=== PATIENT | female | born 1990 | race Caucasian/White ===

== ENCOUNTER 2016-04-08 23:27 | Emergency (ER) | payer OTHER ==
--- NOTE | 2016-04-09 01:10 | ED ORDER SUMMARY ---
..... Patient: LUIGI MITCHELL OrderSheet [facility] VisitID: [id number] [address] [place] [address] 25y, F Registration Date/Time: 04/08/2016 ORDER SHEET Weight: 47.6 kg (stated) Allergies: NKA GENERAL ORDERS: Culture, Throat Urgent (23:59 04/08/2016 AMcQuoid ER Tech1 verbal order read back to Mau BEDOLLA) (Cancelled: Wrong Order0:00 AMcQuoid ER Tech1) Culture, Strep Screen Urgent (00:00 04/09/2016 AMcQuoid ER Tech1 verbal order read back to Mau BEDOLLA) (0:01 AMcQuoid ER Tech1) Soft Tissue Neck Urgent (00:50 04/09/2016 Mau BEDOLLA) (Ack 0:51 AMcQuoid ER Tech1) (0:57 RFay) MEDICATION ORDERS: Augmentin PO 875 mg (NOW) (00:50 04/09/2016 Mau BEDOLLA) (Ack 1:20 HSoule) (1:29 HSoule) Hydrocodone-APAP Liquid PO 10 mL (NOW) (01:08 04/09/2016 Mau BEDOLLA) (Ack 1:20 HSoule) (1:29 HSoule) IV FLUIDS: ORDER SHEET NOTES: [Electronically signed by Wilton Dixon MD (08:49 04/09/2016)] [Electronically signed by Tatiana Mondragon R.N. (16:58 04/11/2016)] [Electronically locked/signed by Tatiana Mondragon R.N. (16:58 04/11/2016)]
--- NOTE | 2016-04-09 01:10 | ED ORDER SUMMARY ---
..... Patient: LUIGI MITCHELL OrderSheet [facility] VisitID: [id number] [address] [place] [address] 25y, F Registration Date/Time: 04/08/2016 ORDER SHEET Weight: 47.6 kg (stated) Allergies: NKA GENERAL ORDERS: Culture, Throat Urgent (23:59 04/08/2016 AMcQuoid ER Tech1 verbal order read back to Mau BEDOLLA) (Cancelled: Wrong Order0:00 AMcQuoid ER Tech1) Culture, Strep Screen Urgent (00:00 04/09/2016 AMcQuoid ER Tech1 verbal order read back to Mau BEDOLLA) (0:01 AMcQuoid ER Tech1) Soft Tissue Neck Urgent (00:50 04/09/2016 Mau BEDOLLA) (Ack 0:51 AMcQuoid ER Tech1) (0:57 RFay) MEDICATION ORDERS: Augmentin PO 875 mg (NOW) (00:50 04/09/2016 Mau BEDOLLA) (Ack 1:20 HSoule) (1:29 HSoule) Hydrocodone-APAP Liquid PO 10 mL (NOW) (01:08 04/09/2016 Mau BEDOLLA) (Ack 1:20 HSoule) (1:29 HSoule) IV FLUIDS: ORDER SHEET NOTES: [Electronically signed by Wilton Dixon MD (08:49 04/09/2016)] [Electronically signed by Tatiana Mondragon R.N. (16:58 04/11/2016)] [Electronically locked/signed by Tatiana Mondragon R.N. (16:58 04/11/2016)]
--- NOTE | 2016-04-09 01:10 | ED CLINICAL REPORT ---
Clinical Report - Physicians/Mid Levels [facility] [address] [place] [address] 04/08/2016 23:28 Patient: LUIGI MITCHELL Time Seen: 00:04 Apr 09 2016. Arrived- By private vehicle. Historian- patient. CPT: ER phys charges level 3 (#238540). HISTORY OF PRESENT ILLNESS Chief Complaint: SORE THROAT. This started yesterday and is still present. Pain described as moderate. The patient has had a sore throat. No mouth sores, nasal discharge or swollen jaw or face. Similar symptoms previously: None. Recent medical care: Not recently seen/assessed. REVIEW OF SYSTEMS No fever, cough, difficulty breathing, chest pain or nausea. No diarrhea, abdominal pain, fainting episodes, joint pain or skin rash. No enlarged lymph nodes. Denies current . All systems otherwise negative, except as recorded above. PAST HISTORY See nurses notes. Medications: None. Allergies: NKA. SOCIAL HISTORY Light tobacco smoker (cigarette)- less than 1/2 a pack per day. Alcohol use. History of drug use: marijuana. ADDITIONAL NOTES The nursing notes have been reviewed. PHYSICAL EXAM Vital Signs: 04/08/2016 23:33 BP: 120/82. HR: 105. RR: 16. O2 saturation: 100%. Temp: 98.8 F. Pain level now: 7/10. Appearance: Alert. Patient in mild distress. Head: Normal external inspection. Eyes: Pupils equal, round and reactive to light. Conjunctivae and eyelids normal. ENT: Ears normal. Nose normal. Mild pharyngeal erythema. No pharyngeal vesicles or ulcerations. No right tonsillar exudate, right tonsillar swelling, left tonsillar exudate or left tonsillar swelling. Lips normal. Gums normal. No trismus present. Uvula midline. Neck: No adenopathy. CVS: Normal heart rate and rhythm. Heart sounds normal. Pulses normal. Respiratory: No respiratory distress. Breath sounds normal. Chest nontender. Abdomen: Soft and nontender. Skin: Normal skin color. No rash. Extremities: Extremities nontender. Neuro: Oriented X 3. No motor deficit. No sensory deficit. LABS, X-RAYS, AND EKG Soft Tissue Neck X-rays: No acute findings. Normal pre-vertebral space, epiglottis and sub-glottic space. Normal alignment. No foreign body. (No apparent edema to the soft tissues of the neck.). Views: lateral and jayla-posterior. Technique: good. The X-rays were independently viewed by me and interpreted contemporaneously by me. Laboratory Tests: Culture, Strep Screen: (DIANNA: 04/09/2016 00:00) ( MsgRcvd 04/09/2016 00:22) Final results Test Result Flag Units (Reference) RAPID STREP SCREEN - THROAT DATE: 04/09/16 NEGATIVE SCREEN: RAPID STREP SCREEN NEGATIVE; CONFIRMATION TO FOLLOW . PROGRESS AND PROCEDURES Course of Care: Augmentin 875 mg po Lortab 10 ml po Patient is stable. Patient/family counseled. Disposition: Discharged. Condition: stable. CLINICAL IMPRESSION Acute pharyngitis. No streptococcal pharyngitis or gonococcal pharyngitis. INSTRUCTIONS No strenuous activity. Do not work for three days until better. Drink plenty of fluids. Warnings: Further evaluation is necessary. GENERAL WARNINGS: Return or contact your physician immediately if your condition worsens or changes unexpectedly, if not improving as expected, or if other problems arise. Prescription Medications: Augmentin 875 mg: take 1 tablet orally every 12 hours for 7 days. Dispense fourteen (14). No refills. Substitution is permissible. Hydrocodone / APAP Liquid 7.5mg/325mg/15 mL: take ten (10) mL orally every 4 hours as needed for pain. Dispense two hundred (200) mL. No refill. Follow-up: Follow up with your doctor in two days. Call for the next available appointment. Understanding of the discharge instructions verbalized by patient and parent. (Electronically signed by Wilton Dixon MD 04/09/2016 8:49)
--- NOTE | 2016-04-09 01:10 | ED CLINICAL REPORT ---
Clinical Report - Physicians/Mid Levels [facility] [address] [place] [address] 04/08/2016 23:28 Patient: LUIGI MITCHELL Time Seen: 00:04 Apr 09 2016. Arrived- By private vehicle. Historian- patient. CPT: ER phys charges level 3 (#[id number]). HISTORY OF PRESENT ILLNESS Chief Complaint: SORE THROAT. This started yesterday and is still present. Pain described as moderate. The patient has had a sore throat. No mouth sores, nasal discharge or swollen jaw or face. Similar symptoms previously: None. Recent medical care: Not recently seen/assessed. REVIEW OF SYSTEMS No fever, cough, difficulty breathing, chest pain or nausea. No diarrhea, abdominal pain, fainting episodes, joint pain or skin rash. No enlarged lymph nodes. Denies current . All systems otherwise negative, except as recorded above. PAST HISTORY See nurses notes. Medications: None. Allergies: NKA. SOCIAL HISTORY Light tobacco smoker (cigarette)- less than 1/2 a pack per day. Alcohol use. History of drug use: marijuana. ADDITIONAL NOTES The nursing notes have been reviewed. PHYSICAL EXAM Vital Signs: 04/08/2016 23:33 BP: 120/82. HR: 105. RR: 16. O2 saturation: 100%. Temp: 98.8 F. Pain level now: 7/10. Appearance: Alert. Patient in mild distress. Head: Normal external inspection. Eyes: Pupils equal, round and reactive to light. Conjunctivae and eyelids normal. ENT: Ears normal. Nose normal. Mild pharyngeal erythema. No pharyngeal vesicles or ulcerations. No right tonsillar exudate, right tonsillar swelling, left tonsillar exudate or left tonsillar swelling. Lips normal. Gums normal. No trismus present. Uvula midline. Neck: No adenopathy. CVS: Normal heart rate and rhythm. Heart sounds normal. Pulses normal. Respiratory: No respiratory distress. Breath sounds normal. Chest nontender. Abdomen: Soft and nontender. Skin: Normal skin color. No rash. Extremities: Extremities nontender. Neuro: Oriented X 3. No motor deficit. No sensory deficit. LABS, X-RAYS, AND EKG Soft Tissue Neck X-rays: No acute findings. Normal pre-vertebral space, epiglottis and sub-glottic space. Normal alignment. No foreign body. (No apparent edema to the soft tissues of the neck.). Views: lateral and jayla-posterior. Technique: good. The X-rays were independently viewed by me and interpreted contemporaneously by me. Laboratory Tests: Culture, Strep Screen: (DIANNA: 04/09/2016 00:00) ( MsgRcvd 04/09/2016 00:22) Final results Test Result Flag Units (Reference) RAPID STREP SCREEN - THROAT DATE: 04/09/16 NEGATIVE SCREEN: RAPID STREP SCREEN NEGATIVE; CONFIRMATION TO FOLLOW . PROGRESS AND PROCEDURES Course of Care: Augmentin 875 mg po Lortab 10 ml po Patient is stable. Patient/family counseled. Disposition: Discharged. Condition: stable. CLINICAL IMPRESSION Acute pharyngitis. No streptococcal pharyngitis or gonococcal pharyngitis. INSTRUCTIONS No strenuous activity. Do not work for three days until better. Drink plenty of fluids. Warnings: Further evaluation is necessary. GENERAL WARNINGS: Return or contact your physician immediately if your condition worsens or changes unexpectedly, if not improving as expected, or if other problems arise. Prescription Medications: Augmentin 875 mg: take 1 tablet orally every 12 hours for 7 days. Dispense fourteen (14). No refills. Substitution is permissible. Hydrocodone / APAP Liquid 7.5mg/325mg/15 mL: take ten (10) mL orally every 4 hours as needed for pain. Dispense two hundred (200) mL. No refill. Follow-up: Follow up with your doctor in two days. Call for the next available appointment. Understanding of the discharge instructions verbalized by patient and parent. (Electronically signed by Wilton Dixon MD 04/09/2016 8:49)
--- NOTE | 2016-04-09 01:10 | ED NURSING NOTES ---
Clinical Report - Nurses [facility] [address] [place] [address] 04/08/2016 23:28 Patient: LUIGI MITCHELL TRIAGE Triage time 2334. Acuity: LEVEL 4. Chief Complaint: COUGH and SORE THROAT. Alert. No acute distress. SEPSIS SCREEN: Sepsis Screen. Negative (no infection suspected/documented). --23:41 Tatiana Mondragon R.N. 23:33 04/08/16. BP: 120/82. HR: 105. RR: 16. O2 saturation: 100%. Temp: 98.8 F. Pain level now: 09/03. --23:41 Tatiana Mondragon R.N. Weight: 47.6 kg stated. Height/Length: 62 inches Per Patient. BMI: 19.2. --23:33 Tatiana Mondragon R.N. Medications None. --23:38 Tatiana Mondragon R.N. Allergies NKA. --23:38 Tatiana Mondragon R.N. Medication/allergy information source: the patient. --23:41 Tatiana Mondragon R.N. History Arrived by private vehicle. Historian: patient. ( Pt states started feeling with a sore throat since yesterday went to [facility] in clinic and was told to rinse with salt water and "did not have strep throat" Pt states feeling worst, dizzy, hurts when she breathes and very sore throat). This started yesterday. She has had chest congestion, fatigue and a headache. No abdominal pain, vomiting or diarrhea. No recent travel. Treatment SIGN BOARD ERECTOR: None. PAST MEDICAL HX: Immunizations: up-to-date. SOCIAL HX: Light tobacco smoker- less than 1/2 a pack per day. Occasional alcohol use. (1 years). History of occasional drug use: marijuana. (5 months). No recent travel. SELF HARM ASSESSMENT: A self harm assessment was performed. The patient answered "no" to the question "Do you have thoughts of harming or killing yourself?" and "Have you recently had thoughts about harming or killing others?". FALL RISK ASSESSMENT: Fall risk assessment completed. No fall risk identified. NUTRITIONAL RISK ASSESSMENT: The nutritional risk assessment revealed no deficiencies. FUNCTIONAL ASSESSMENT: Functional assessment: no impairments noted. LEARNING NEEDS ASSESSMENT: The learning needs assessment revealed no barriers. SKIN INTEGRITY ASSESSMENT: Skin integrity risk assessment completed. No skin integrity risk identified. --23:41 Tatiana Mondragon R.N. PROBLEMS: Fractured Metatarsal. ADHD - Attention Deficit Hyperactivity Disorder. Anxiety Reaction. Tetanus Status. Immunizations. Bronchitis. Pneumonia. LNMP - Last Normal Menstrual Period. --23:38 Tatiana Mondragon R.N. ADDITIONAL SURGERIES: Adenoidectomy. Dilatation & Curettage. Tonsillectomy. --23:38 Tatiana Mondragon R.N. Interventions ID band on patient. --23:41 Tatiana Mondragon R.N. PHYSICAL ASSESSMENT Ambulatory to room. GENERAL / NEURO / PSYCH: Alert. Oriented X 4. Appears in no acute distress. HEENT: Pupils equal, round and reactive to light. Mucous membranes are pink. RESPIRATORY: Cough. Decreased breath sounds in the bases bilaterally. Breath sounds within normal limits. No wheezes. CVS: Capillary refill less than 2 seconds. SKIN: Skin intact. Skin is warm and dry. Normal skin turgor. --23:42 Tatiana Mondragon R.N. NURSING PROGRESS NOTES The initial plan of care for this patient has been created This plan of care was discussed with the patient. Patient gowned. Reassurance given. Two patient identifiers checked. Call light placed in reach. Side rails up x 1. Bed placed in lowest position. Brakes of bed on. --23:43 Tatiana Mondragon R.N. 23:50. Checked patient name and birthdate: patient confirmed. Throat swab obtained for rapid strep. --00:02 Sheeba Quiroz ER Tech1 :04/09/2016 Augmentin (Amoxicillin-Pot Clavulanate) PO Tablets 875 mg given. Allergies verified and confirmed 5 rights. --: Radha Velazquez 01:29 04/09/2016 Hydrocodone-APAP Liquid (Hydrocodone-Acetaminophen) PO Solution/Elixir 10 mL given. Allergies verified, confirmed 5 rights and sedative warning given to the patient and patient's family. --01:29 Radha Velazquez. DISPOSITION / DISCHARGE Condition at departure: stable. No learning barriers present. Discharge instructions provided and reviewed with the patient and family. Activity restrictions reviewed (no work for 3 days). Work note given. Patient and family verbalized understanding. Written instructions provided in Portuguese. ( Taught pt not to drive while taking Hydrodocone and to not take extra Acetominophin. Also taught pt to drink plenty of fluids. Pt denied having any questions.). The patient was discharged home and accompanied by parent. She left the Emergency Department ambulatory and via private vehicle. Parent driving. FALL RISK ASSESSMENT: Fall risk assessment completed. No fall risk identified. --01:36 Radha Velazquez 01:32 04/09/16. BP: 106/76. HR: 78. RR: 16. O2 saturation: 98%. Temp: 99.5 F (oral). Pain level now: 09/03. --01:36 Radha Velazquez. Locked/Released at 04/11/2016 16:58 by Tatiana Mondragon, RHiltonNHilton
--- NOTE | 2016-04-09 05:54 | DIAGNOSTIC IMAGING REPORT ---
PROCEDURE: XR SOFT TISSUE NECK INDICATION: DIFFICULTY SWALLOWING TECHNIQUE: AP and lateral views. COMPARISON: None. FINDINGS: Normal epiglottis. There is no prevertebral soft tissue swelling. No radiopaque foreign bodies. There is straightening of the cervical spine. Normal disc spaces and alignment without fracture. IMPRESSION: 1. Normal study
--- NOTE | 2016-04-11 16:58 | ED DISCHARGE INSTRUCTIONS ---
Patient: LUIGI MITCHELL General Instructions [facility] VisitID: [id number] [address] [place] [address] 25y, F Registration Date/Time: 04/08/2016 Acute pharyngitis. No streptococcal pharyngitis or gonococcal pharyngitis. INSTRUCTIONS No strenuous activity. Do not work for three days until better. Drink plenty of fluids. Warnings: Further evaluation is necessary. GENERAL WARNINGS: Return or contact your physician immediately if your condition worsens or changes unexpectedly, if not improving as expected, or if other problems arise. Prescription Medications: Augmentin 875 mg: take 1 tablet orally every 12 hours for 7 days. Dispense fourteen (14). No refills. Substitution is permissible. Hydrocodone / APAP Liquid 7.5mg/325mg/15 mL: take ten (10) mL orally every 4 hours as needed for pain. Dispense two hundred (200) mL. No refill. Follow-up: Follow up with your doctor in two days. Call for the next available appointment. Understanding of the discharge instructions verbalized by patient and parent. ADDITIONAL INFORMATION Hydrocodone Bitartrate, Acetaminophen Oral solution What is this medicine? ACETAMINOPHEN; HYDROCODONE (a set a LILIANA kevin fen; seamus droe KOE done) is a pain reliever. It is used to treat mild to moderate pain. How should I use this medicine? Take this medicine by mouth. Use a specially marked spoon or dropper to measure your dose. Ask your pharmacist if you do not have a dropper or measuring spoon. Do not use a household spoon. Follow the directions on the prescription label. If the medicine upsets your stomach, take it with food or milk. Do not take more medicine than you are told to take. Talk to your talent acquisition associate regarding the use of this medicine in children. This medicine is not approved for use in children. What side effects may I notice from receiving this medicine? Side effects that you should report to your doctor or health animal care assistant as soon as possible: allergic reactions like skin rash, itching or hives, swelling of the face, lips, or tongue breathing problems confusion feeling faint or lightheaded, falls stomach pain yellowing of the eyes or skin Side effects that usually do not require medical attention (report to your doctor or health animal care assistant if they continue or are bothersome): nausea, vomiting stomach upset What may interact with this medicine? alcohol antihistamines isoniazid medicines for depression, anxiety, or psychotic disturbances medicines for sleep muscle relaxants naltrexone narcotic medicines (opiates) for pain phenobarbital ritonavir tramadol What if I miss a dose? If you miss a dose, take it as soon as you can. If it is almost time for your next dose, take only that dose. Do not take double or extra doses. Where should I keep my medicine? Keep out of the reach of children. This medicine can be abused. Keep your medicine in a safe place to protect it from theft. Do not share this medicine with anyone. Selling or giving away this medicine is dangerous and against the law. Store at room temperature between 20 and 25 degrees C (68 and 77 degrees F). Protect from light. Keep container tightly closed. Throw away any unused medicine after the expiration date. Discard unused medicine and used packaging carefully. Pets and children can be harmed if they find used or lost packages. What should I tell my health care provider before I take this medicine? They need to know if you have any of these conditions: brain tumor Crohn's disease, inflammatory bowel disease, or ulcerative colitis drink more than 3 alcohol-containing drinks per day drug abuse or addiction head injury heart or circulation problems kidney disease or problems going to the bathroom liver disease lung disease, asthma, or breathing problems an unusual or allergic reaction to acetaminophen, hydrocodone, other opioid analgesics, other medicines, foods, dyes, or preservatives or trying to get breast-feeding What should I watch for while using this medicine? Tell your doctor or health animal care assistant if your pain does not go away, if it gets worse, or if you have new or a different type of pain. You may develop tolerance to the medicine. Tolerance means that you will need a higher dose of the medicine for pain relief. Tolerance is normal and is expected if you take this medicine for a long time. Do not suddenly stop taking your medicine because you may develop a severe reaction. Your body becomes used to the medicine. This does NOT mean you are addicted. Addiction is a behavior related to getting and using a drug for a non-medical reason. If you have pain, you have a medical reason to take pain medicine. Your doctor will tell you how much medicine to take. If your doctor wants you to stop the medicine, the dose will be slowly lowered over time to avoid any side effects. You may get drowsy or dizzy when you first start taking the medicine or change doses. Do not drive, use machinery, or do anything that may be dangerous until you know how the medicine affects you. Stand or sit up slowly. There are different types of narcotic medicines (opiates) for pain. If you take more than one type at the same time, you may have more side effects. Give your health care provider a list of all medicines you use. Your doctor will tell you how much medicine to take. Do not take more medicine than directed. Call emergency for help if you have problems breathing. The medicine will cause constipation. Try to have a bowel movement at least every 2 to 3 days. If you do not have a bowel movement for 3 days, call your doctor or health animal care assistant. Too much acetaminophen can be very dangerous. Do not take Tylenol (acetaminophen) or medicines that contain acetaminophen with this medicine. Many non-prescription medicines contain acetaminophen. Always read the labels carefully. You have been given the following additional information: Hydrocodone Bitartrate, Acetaminophen Oral solution No strenuous activity. Do not work for three days until better. (Electronically signed by Wilton Dixon MD 04/09/2016 8:49)
--- NOTE | 2016-04-11 16:58 | ED MED RECONCILIATION SUMMARY ---
Patient: LUIGI MITCHELL Medication Reconciliation Report [facility] VisitID: [id number] [address] [place] [address] 25y, F Registration Date/Time: 04/08/2016 Weight: 47.6 kg Height/Length: 62 in. BMI: 19.2 ALLERGIES: NKA The patient's Home Medications are listed below: NONE. The source(s) of the original Home Medication information: patient The following Medications were given to the patient in the Emergency Department: Augmentin [PO] PO 875 mg, administered: 04/09/2016 1:29:00 AM Hydrocodone-APAP Liquid [PO] PO 10 mL, administered: 04/09/2016 1:29:00 AM The following Medications were prescribed to the patient: Augmentin 875 mg: take 1 tablet orally every 12 hours for 7 days. Dispense fourteen (14). No refills. Substitution is permissible. -- Wilton Dixon MD Hydrocodone / APAP Liquid 7.5mg/325mg/15 mL: take ten (10) mL orally every 4 hours as needed for pain. Dispense two hundred (200) mL. No refill. -- Wilton Dixon MD
--- NOTE | 2016-04-11 16:58 | ED MAR SUMMARY ---
..... Medication Administration Record [facility] [address] [place] [address] Patient: LUIGI MITCHELL Visit ID: [id number] 25y, F Weight: 47.6 kg Height/Length: 62 in BMI: 19.2 ALLERGIES: NKA Given 04/09/2016 Radha Velazquez, Medication Administered: AUGMENTIN [PO] (AMOXICILLIN-POT CLAVULANATE), Dose: 875 mg Tablets PO. Medication Ordered: Augmentin PO 875 mg (NOW). Given 04/09/2016 Radha Velazquez, Medication Administered: HYDROCODONE-APAP LIQUID [PO] (HYDROCODONE-ACETAMINOPHEN), Dose: 10 mL Solution/Elixir PO. Medication Ordered: Hydrocodone-APAP Liquid PO 10 mL (NOW).
--- NOTE | 2016-04-11 16:58 | ED MAR SUMMARY ---
..... Medication Administration Record [facility] [address] [place] [address] Patient: LUIGI MITCHELL Visit ID: [id number] 25y, F Weight: 47.6 kg Height/Length: 62 in BMI: 19.2 ALLERGIES: NKA Given 04/09/2016 Radha Velazquez, Medication Administered: AUGMENTIN [PO] (AMOXICILLIN-POT CLAVULANATE), Dose: 875 mg Tablets PO. Medication Ordered: Augmentin PO 875 mg (NOW). Given 04/09/2016 Radha Velazquez, Medication Administered: HYDROCODONE-APAP LIQUID [PO] (HYDROCODONE-ACETAMINOPHEN), Dose: 10 mL Solution/Elixir PO. Medication Ordered: Hydrocodone-APAP Liquid PO 10 mL (NOW).
--- NOTE | 2016-04-11 16:58 | ED MED RECONCILIATION SUMMARY ---
Patient: LUIGI MITCHELL Medication Reconciliation Report [facility] VisitID: [id number] [address] [place] [address] 25y, F Registration Date/Time: 04/08/2016 Weight: 47.6 kg Height/Length: 62 in. BMI: 19.2 ALLERGIES: NKA The patient's Home Medications are listed below: NONE. The source(s) of the original Home Medication information: patient The following Medications were given to the patient in the Emergency Department: Augmentin [PO] PO 875 mg, administered: 04/09/2016 1:29:00 AM Hydrocodone-APAP Liquid [PO] PO 10 mL, administered: 04/09/2016 1:29:00 AM The following Medications were prescribed to the patient: Augmentin 875 mg: take 1 tablet orally every 12 hours for 7 days. Dispense fourteen (14). No refills. Substitution is permissible. -- Wilton Dixon MD Hydrocodone / APAP Liquid 7.5mg/325mg/15 mL: take ten (10) mL orally every 4 hours as needed for pain. Dispense two hundred (200) mL. No refill. -- Wilton Dixon MD
--- NOTE | 2016-04-11 16:58 | ED DISCHARGE INSTRUCTIONS ---
Patient: LUIGI MITCHELL General Instructions [facility] VisitID: [id number] [address] [place] [address] 25y, F Registration Date/Time: 04/08/2016 Acute pharyngitis. No streptococcal pharyngitis or gonococcal pharyngitis. INSTRUCTIONS No strenuous activity. Do not work for three days until better. Drink plenty of fluids. Warnings: Further evaluation is necessary. GENERAL WARNINGS: Return or contact your physician immediately if your condition worsens or changes unexpectedly, if not improving as expected, or if other problems arise. Prescription Medications: Augmentin 875 mg: take 1 tablet orally every 12 hours for 7 days. Dispense fourteen (14). No refills. Substitution is permissible. Hydrocodone / APAP Liquid 7.5mg/325mg/15 mL: take ten (10) mL orally every 4 hours as needed for pain. Dispense two hundred (200) mL. No refill. Follow-up: Follow up with your doctor in two days. Call for the next available appointment. Understanding of the discharge instructions verbalized by patient and parent. ADDITIONAL INFORMATION Hydrocodone Bitartrate, Acetaminophen Oral solution What is this medicine? ACETAMINOPHEN; HYDROCODONE (a set a LILIANA kevin fen; seamus droe KOE done) is a pain reliever. It is used to treat mild to moderate pain. How should I use this medicine? Take this medicine by mouth. Use a specially marked spoon or dropper to measure your dose. Ask your pharmacist if you do not have a dropper or measuring spoon. Do not use a household spoon. Follow the directions on the prescription label. If the medicine upsets your stomach, take it with food or milk. Do not take more medicine than you are told to take. Talk to your offset platemaker regarding the use of this medicine in children. This medicine is not approved for use in children. What side effects may I notice from receiving this medicine? Side effects that you should report to your doctor or health care taker as soon as possible: allergic reactions like skin rash, itching or hives, swelling of the face, lips, or tongue breathing problems confusion feeling faint or lightheaded, falls stomach pain yellowing of the eyes or skin Side effects that usually do not require medical attention (report to your doctor or health care taker if they continue or are bothersome): nausea, vomiting stomach upset What may interact with this medicine? alcohol antihistamines isoniazid medicines for depression, anxiety, or psychotic disturbances medicines for sleep muscle relaxants naltrexone narcotic medicines (opiates) for pain phenobarbital ritonavir tramadol What if I miss a dose? If you miss a dose, take it as soon as you can. If it is almost time for your next dose, take only that dose. Do not take double or extra doses. Where should I keep my medicine? Keep out of the reach of children. This medicine can be abused. Keep your medicine in a safe place to protect it from theft. Do not share this medicine with anyone. Selling or giving away this medicine is dangerous and against the law. Store at room temperature between 20 and 25 degrees C (68 and 77 degrees F). Protect from light. Keep container tightly closed. Throw away any unused medicine after the expiration date. Discard unused medicine and used packaging carefully. Pets and children can be harmed if they find used or lost packages. What should I tell my health care provider before I take this medicine? They need to know if you have any of these conditions: brain tumor Crohn's disease, inflammatory bowel disease, or ulcerative colitis drink more than 3 alcohol-containing drinks per day drug abuse or addiction head injury heart or circulation problems kidney disease or problems going to the bathroom liver disease lung disease, asthma, or breathing problems an unusual or allergic reaction to acetaminophen, hydrocodone, other opioid analgesics, other medicines, foods, dyes, or preservatives or trying to get breast-feeding What should I watch for while using this medicine? Tell your doctor or health care taker if your pain does not go away, if it gets worse, or if you have new or a different type of pain. You may develop tolerance to the medicine. Tolerance means that you will need a higher dose of the medicine for pain relief. Tolerance is normal and is expected if you take this medicine for a long time. Do not suddenly stop taking your medicine because you may develop a severe reaction. Your body becomes used to the medicine. This does NOT mean you are addicted. Addiction is a behavior related to getting and using a drug for a non-medical reason. If you have pain, you have a medical reason to take pain medicine. Your doctor will tell you how much medicine to take. If your doctor wants you to stop the medicine, the dose will be slowly lowered over time to avoid any side effects. You may get drowsy or dizzy when you first start taking the medicine or change doses. Do not drive, use machinery, or do anything that may be dangerous until you know how the medicine affects you. Stand or sit up slowly. There are different types of narcotic medicines (opiates) for pain. If you take more than one type at the same time, you may have more side effects. Give your health care provider a list of all medicines you use. Your doctor will tell you how much medicine to take. Do not take more medicine than directed. Call emergency for help if you have problems breathing. The medicine will cause constipation. Try to have a bowel movement at least every 2 to 3 days. If you do not have a bowel movement for 3 days, call your doctor or health care taker. Too much acetaminophen can be very dangerous. Do not take Tylenol (acetaminophen) or medicines that contain acetaminophen with this medicine. Many non-prescription medicines contain acetaminophen. Always read the labels carefully. You have been given the following additional information: Hydrocodone Bitartrate, Acetaminophen Oral solution No strenuous activity. Do not work for three days until better. (Electronically signed by Wilton Dixon MD 04/09/2016 8:49)
== END 2016-04-09 01:36 | disposition home or self-care (01) ==
LOC: ED SRH 23:27
DX: J02.9 Acute pharyngitis, unspecified (principal)
CPT/HCPCS: 90154; 90159